=== PATIENT | female | born 1980 | race Caucasian/White ===

== ENCOUNTER → 2020-01-02 08:27 | Outpatient (BNVA) | payer OTHER, SELFPAY | PROVIDERS: PCP Internal Medicine; Visit Provider Surgery | DX: Z76.89 Persons encountering health services in other specified circumstances (principal) ==

== ENCOUNTER → 2020-01-05 08:30 | Outpatient (BNVA) | payer OTHER, SELFPAY | PROVIDERS: PCP Internal Medicine; Visit Provider Dietitian, Registered | DX: Z76.89 Persons encountering health services in other specified circumstances (principal) ==

== ENCOUNTER → 2020-01-21 08:14 | Outpatient (BNVA) | payer OTHER, SELFPAY | PROVIDERS: PCP Internal Medicine; Visit Provider Physician Assistant | DX: Z76.89 Persons encountering health services in other specified circumstances (principal) ==

== ENCOUNTER → 2020-02-11 08:55 | Outpatient (BNVA) | payer OTHER, SELFPAY | PROVIDERS: Visit Provider Physician Assistant | DX: Z76.89 Persons encountering health services in other specified circumstances (principal) ==

== ENCOUNTER → 2020-03-08 08:08 | Outpatient (BNVA) | payer OTHER, SELFPAY | PROVIDERS: PCP Nurse Practitioner Acute Care; Referring Provider Nurse Practitioner Acute Care; Visit Provider Physician Assistant | DX: Z76.89 Persons encountering health services in other specified circumstances (principal) ==

== ENCOUNTER → 2020-04-13 08:34 | Outpatient (BNVA) | payer OTHER, SELFPAY | PROVIDERS: PCP Nurse Practitioner Acute Care; Visit Provider Physician Assistant ==

== ENCOUNTER → 2020-04-14 08:10 | Outpatient (BNVA) | payer OTHER, SELFPAY | PROVIDERS: PCP Nurse Practitioner Acute Care; Visit Provider Dietitian, Registered | DX: Z76.89 Persons encountering health services in other specified circumstances (principal) ==

== ENCOUNTER → 2020-05-07 10:38 | Outpatient (BNVA) | payer OTHER, SELFPAY | PROVIDERS: PCP Nurse Practitioner Acute Care; Visit Provider Surgery ==

== ENCOUNTER → 2020-06-04 11:34 | Outpatient (BNVA) | payer OTHER, SELFPAY | PROVIDERS: PCP Internal Medicine; Visit Provider Dietitian, Registered ==

== ENCOUNTER 2020-07-12 08:51 | Outpatient (REF) | payer OTHER, SELFPAY ==
[2020-07-12 09:36] LABS: MANUAL DIFF FLAG NO
[2020-07-12 09:45] LABS: Basophils Percent Auto 0.8 % (0-2); Eosinophils Absolute Auto 0.2 X10*3/uL (0.0-0.4); Eosinophils Percent Auto 3.1 % (0-4); Hemoglobin 13.2 g/dl (12.0-16.0); Imm Gran Abs Auto 0.01 X10*3/uL (0.00-0.03); Imm Gran Pct Auto 0.2 % (0.0-0.4); Lymphocytes Absolute Auto 1.2 X10*3/uL (1.2-4.9); Lymphocytes Percent Auto 23.2 % (20-40); Mean Corpuscular HGB Conc 32.2 g/dl (31.0-35.0); Mean Corpuscular Hemoglobin 31.1 pg (27.0-33.0); Mean Corpuscular Volume 96.7 fL (80-98); Mean Platelet Volume 9.4 fL (9.4-12.3); Monocytes Absolute Auto 0.3 X10*3/uL (0.1-1.2); Neutrophils Absolute Auto 3.5 X10*3/uL (2.0-8.3); Neutrophils Percent Auto 67.7 % (45-73); Platelet Count 264 X10*3/uL (160-400); Red Blood Count 4.24 X10*6/uL (4.20-5.50); Red Cell Distribution Width 12.6 % (11.0-16.0); White Blood Count 5.2 X10*3/uL (4.8-10.8)
[2020-07-12 10:06] LABS: Alanine Aminotransferase 14 U/L (0-31); Alkaline Phosphatase 66 U/L (39-117); Anion Gap 11 (12-20); Aspartate Amino Transferase 17 U/L (5-31); Bilirubin Total 0.7 mg/dL (0.0-1.0); Blood Urea Nitrogen 14 mg/dL (9-16); C Reactive Protein 0.82 mg/dL (< or = 0.50); Calcium 8.8 mg/dL (8.4-10.2); Carbon Dioxide 28 mmol/L (22-29); Chloride 106 mmol/L (96-108); Cholesterol 181 mg/dL; Estimated Glomerular Filt Rate > 60; Glucose Fasting 84 mg/dL (60-99); HDL Cholesterol 58 mg/dL; Iron 116 mcg/dL (30-160); LDL Cholesterol Calculated 108 mg/dl; Percent Iron Saturation 43 % (15-50); Potassium 4.5 mmol/L (3.3-5.1); Sodium 140 mmol/L (135-145); Total Iron Binding Capacity 267 mcg/dL (228-428); Total Protein 6.4 g/dL (6.5-8.0); Triglycerides 75 mg/dL; Unsaturated Iron Binding 151 ug/dL
[2020-07-12 10:29] LABS: Thyroid Stimulating Hormone 3.26 uIU/mL (0.32-4.0); Vitamin D 25-OH Total 56.9 ng/mL (>30)
[2020-07-12 10:43] LABS: Vitamin B12 414 pg/mL (200-900)
[2020-07-13 14:01] LABS: Calcium (PTHI) 8.8 mg/dL (8.6-10.2); PTHI 47 pg/mL (14-64)
[2020-07-14 15:46] LABS: Zinc 68 mcg/dL (60-130)
[2020-07-15 21:07] LABS: Vitamin A 47 mcg/dL (38-98)
[2020-07-16 06:42] LABS: Vitamin B1 7 nmol/L (8-30)
== END 2020-07-12 08:52 | disposition home or self-care (01) ==
LOC: HO.LAB 08:51
PROVIDERS: PCP Internal Medicine; Visit Provider Surgery
DX: Z01.818 Encounter for other preprocedural examination (principal); K91.2 Postsurgical malabsorption, not elsewhere classified; Z90.3 Acquired absence of stomach [part of]
CPT/HCPCS: 36415; 80053; 80061; 82306; 82607; 83540; 83970; 84425; 84443; 84590; 84630; 85025; 86140

== ENCOUNTER → 2020-08-06 09:47 | Outpatient (BNVA) | payer OTHER, SELFPAY | PROVIDERS: PCP Internal Medicine; Referring Provider Internal Medicine; Visit Provider Physician Assistant ==

== ENCOUNTER 2020-08-27 08:42 | Outpatient (REF) | payer OTHER, SELFPAY ==
--- NOTE | ~2020-08-27 | CT_ITS ---
EXAMINATION: CT ABDOMEN AND PELVIS WITH CONTRAST CLINICAL INFORMATION: Lump left-side of abdomen and pain. BB placed over area on the left abdominal wall COMPARISON: None TECHNIQUE: Multidetector volumetric images were obtained from the superior aspect of the liver through the pubic symphysis following administration 85 mL of Omnipaque 350 intravenous contrast. Sagittal and coronal reformatted images were obtained on the technologist's workstation. Oral contrast: Yes This CT examination was performed using dose optimization techniques as appropriate, variously including the following: *Automated exposure control *Adjustment of mA and/or kV according to patient size (this includes techniques or standardized protocols for targeted exams where dose is matched to indication/reason for exam; i.e. extremities or head) *Use of iterative reconstruction technique DLP: 596 mGy-cm FINDINGS: LUNG BASES: The visualized lung bases are unremarkable. LIVER, GALLBLADDER, AND BILIARY TREE: The liver is normal in size, shape, and attenuation. No focal hepatic lesion or biliary ductal dilatation is present. The gallbladder is unremarkable with no evidence of radiopaque gallstones, gallbladder wall thickening, or obvious pericholecystic inflammatory changes. PANCREAS: Unremarkable. SPLEEN: Unremarkable. ADRENAL GLANDS: Unremarkable. KIDNEYS AND URETERS: The kidneys are normal in size, shape, and attenuation. No hydronephrosis, hydroureter, or calculi seen. No perinephric stranding. BLADDER: Unremarkable. GASTROINTESTINAL TRACT: The small and large bowel are unremarkable. The appendix is unremarkable. There are postsurgical changes from gastric sleeve. ABDOMINAL WALL: No hernia is seen. No mass or fluid collection is seen. LYMPH NODES: Normal. VASCULAR: Unremarkable. PELVIC VISCERA: Unremarkable. OSSEOUS STRUCTURES: Unremarkable. CT/CT abdomen pelvis w con IMPRESSION: Postoperative change from gastric sleeve procedure. Otherwise unremarkable exam. No hernia or abdominal wall fluid collection or mass seen.
[2020-08-27] MEDS: Diatrizoate Meglumine, Sodium 30 ML SOLUTION PO (12:07)
== END 2020-08-27 08:43 | disposition home or self-care (01) ==
LOC: HO.CT 08:42
PROVIDERS: Visit Provider Physician Assistant
DX: R10.11 Right upper quadrant pain (principal); K91.2 Postsurgical malabsorption, not elsewhere classified; E66.3 Overweight; Z68.27 Body mass index [BMI] 27.0-27.9, adult; Z90.3 Acquired absence of stomach [part of]; Z98.84 Bariatric surgery status
CPT/HCPCS: 74177

== ENCOUNTER → 2020-09-17 09:12 | Outpatient (BNVA) | payer OTHER, SELFPAY | PROVIDERS: PCP Internal Medicine; Visit Provider Dietitian, Registered | DX: E66.3 Overweight (principal); Z68.26 Body mass index [BMI] 26.0-26.9, adult | CPT/HCPCS: 97803 ==

== ENCOUNTER 2020-11-30 08:55 | Outpatient (REF) | payer OTHER, SELFPAY ==
[2020-11-30 09:47] LABS: MANUAL DIFF FLAG NO
[2020-11-30 09:54] LABS: Basophils Percent Auto 0.9 % (0-2); Eosinophils Absolute Auto 0.2 X10*3/uL (0.0-0.4); Eosinophils Percent Auto 3.6 % (0-4); Hematocrit 40.5 % (37-47); Hemoglobin 13.4 g/dl (12.0-16.0); Imm Gran Abs Auto 0.01 X10*3/uL (0.00-0.03); Imm Gran Pct Auto 0.2 % (0.0-0.4); Lymphocytes Absolute Auto 1.5 X10*3/uL (1.2-4.9); Lymphocytes Percent Auto 32.3 % (20-40); Mean Corpuscular HGB Conc 33.1 g/dl (31.0-35.0); Mean Corpuscular Hemoglobin 31.3 pg (27.0-33.0); Mean Corpuscular Volume 94.6 fL (80-98); Mean Platelet Volume 9.6 fL (9.4-12.3); Monocytes Absolute Auto 0.3 X10*3/uL (0.1-1.2); Monocytes Percent Auto 5.5 % (2-11); Neutrophils Absolute Auto 2.7 X10*3/uL (2.0-8.3); Neutrophils Percent Auto 57.5 % (45-73); Platelet Count 291 X10*3/uL (160-400); Red Blood Count 4.28 X10*6/uL (4.20-5.50); Red Cell Distribution Width 12.3 % (11.0-16.0); White Blood Count 4.7 X10*3/uL (4.8-10.8)
[2020-11-30 10:06] LABS: Estimated Average Glucose 97 mg/dL
[2020-11-30 10:17] LABS: Alanine Aminotransferase 11 U/L (0-31); Albumin Level 4.1 g/dL (3.5-5.0); Alkaline Phosphatase 55 U/L (39-117); Anion Gap 11 (12-20); Aspartate Amino Transferase 19 U/L (5-31); Bilirubin Total 0.6 mg/dL (0.0-1.0); Blood Urea Nitrogen 16 mg/dL (9-16); C Reactive Protein 1.01 mg/dL (< or = 0.50); Calcium 9.2 mg/dL (8.4-10.2); Carbon Dioxide 29 mmol/L (22-29); Chloride 106 mmol/L (96-108); Cholesterol 213 mg/dL; Estimated Glomerular Filt Rate > 60; Glucose Fasting 82 mg/dL (60-99); HDL Cholesterol 79 mg/dL; Iron 117 mcg/dL (30-160); LDL Cholesterol Calculated 116 mg/dl; Percent Iron Saturation 36 % (15-50); Potassium 4.5 mmol/L (3.3-5.1); Sodium 141 mmol/L (135-145); Total Iron Binding Capacity 329 mcg/dL (228-428); Total Protein 6.6 g/dL (6.5-8.0); Triglycerides 93 mg/dL; Unsaturated Iron Binding 212 ug/dL
[2020-11-30 10:39] LABS: Ferritin 41 ng/mL (10-250); TSH reflex Free T4 3.31 uIU/mL (0.32-4.0); Vitamin D 25-OH Total 73.7 ng/mL (>30)
[2020-11-30 10:41] LABS: Folate 19.5 ng/mL (> or = 4.0); Vitamin B12 446 pg/mL (200-900)
[2020-12-01 18:22] LABS: Calcium (PTHI) 8.9 mg/dL (8.6-10.2); PTHI 50 pg/mL (14-64)
[2020-12-03 06:21] LABS: Zinc 91 mcg/dL (60-130)
[2020-12-05 00:21] LABS: Vitamin A 86 mcg/dL (38-98)
[2020-12-05 10:31] LABS: Vitamin B1 30 nmol/L (8-30)
== END 2020-11-30 08:56 | disposition home or self-care (01) ==
LOC: HO.LAB 08:55
PROVIDERS: PCP Internal Medicine; Visit Provider Physician Assistant
DX: K91.2 Postsurgical malabsorption, not elsewhere classified (principal); E66.3 Overweight; Z68.25 Body mass index [BMI] 25.0-25.9, adult; Z98.84 Bariatric surgery status; Z90.3 Acquired absence of stomach [part of]
CPT/HCPCS: 36415; 80053; 80061; 82306; 82607; 82728; 82746; 83036; 83525; 83540; 83970; 84425; 84443; 84590; 84630; 85025; 86140